=== PATIENT | female | born 1975 | race American Indian/Alaskan Native ===

== ENCOUNTER 2018-07-02 00:04 | Emergency (ER) | payer OTHER ==
[2018-07-02 00:50] VITALS: BP 129/67
--- NOTE | 2018-07-02 07:25 | Emergency Department Report ---
ED Laceration HPI - HPI Chief Complaint: Wound/Laceration Stated Complaint: RIGHT THUMB LACERATION Time Seen by Provider: 07/02/18 06:59 Occurred When: Yesterday Location: Upper Extremity (right 1st digit) Severity: mild Tetanus Status: Not up to Date Laceration Symptoms: Yes Pain, No Foreign Body Sensation, No Numbness, No Weakness Other History: This is a 43-year-old -[place] female who presents with a laceration to her right first digit. Patient states she accidentally cut her finger on a tape dispenser last night while at work. She reports incident occurred around 2224. Patient states she cleaned area with water and apply cool compresses. She does not recall her last tetanus vaccine. States she can't control bleeding. Patient denies numbness, tingling, swelling, paresthesias, or swelling. ED Review of Systems ROS: Stated complaint: RIGHT THUMB LACERATION Other details as noted in HPI Constitutional: denies: chills, fever Respiratory: denies: cough, shortness of breath, wheezing Cardiovascular: denies: chest pain, palpitations Gastrointestinal: denies: abdominal pain, nausea, diarrhea Skin: lesions (laceration to first digit). denies: rash Neurological: denies: headache, weakness, paresthesias Psychiatric: denies: anxiety, depression ED Past Medical Hx - Past Medical History Previous Medical History?: No - Surgical History Past Surgical History?: Yes Additional Surgical History: left kidney removed - Social History Smoking Status: Never Smoker Substance Use Type: None Laceration Physical Exam - Exam General: Vital signs noted. No distress. Alert and acting appropriately. Wound Length (cm): 1 (half centimeter) Laceration Location: Upper Extremity (anterior right first distal phalanx into the epidermis) Laceration Exam: Yes Normal Distal CMS, No Foreign Body, No Exposed Tendon, Vessel, or Nerve, No Tendon Injury ED Course Vital Signs 07/02/18 00:47 Temperature 98.1 F Pulse Rate 84 Respiratory 20 Rate Blood Pressure 129/67 O2 Sat by Pulse 100 Oximetry - Laceration /Wound Repair Right Anterior Distal Finger Wound Location: upper extremity (first distal phalanx) Wound Length (cm): 0 (half a centimeter) Wound's Depth, Shape: into muscle, linear Wound Explored: clean Irrigated w/ Saline (ccs): 10 Betadine Prep?: Yes Wound Repaired With: Dermabond Sterile Dressing Applied?: Yes ED Medical Decision Making - Medical Decision Making This is a 43 y.o. female presents with right first distal phalanx laceration since last night. Patient examined by me. Patient is non-toxic appearing and stable. There is a half a centimeter laceration to the anterior right distal first phalanx into the epidermis. Wound was irrigated with 10 mL of normal saline, Betadine wash, and closed with Dermabond. Given tetanus vaccine while in ER. Discussed ER care plan with patient. Discharged home stable. Patient agreed with plan. F/U with PCP. Critical care attestation.: If time is entered above; I have spent that time in minutes in the direct care o f this critically ill patient, excluding procedure time. ED Disposition Clinical Impression: Laceration of finger Qualifiers: Encounter type: initial encounter Finger: thumb Damage to nail status: without damage Foreign body presence: without foreign body Laterality: right Qualified Code(s): S61.011A - Laceration without foreign body of right thumb without damage to nail, initial encounter Disposition: DC- TO HOME OR SELFCARE Is pt being admited?: No Does the pt Need Aspirin: No Condition: Stable Instructions: Laceration (ED), Skin Adhesive Care (ED) Additional Instructions: Keep wound dry and clean for 48 hours. Avoid putting to much tension on wound site. Prop arm up on pillows to decrease swelling. Follow up with Primary Care Provider in 2-3 days. Return to ER if red, swollen, foul discharge, or fever. Referrals: NAOMI HOPE MD [Primary Care Provider] - 3-[address] [facility] [Outside] - 3-5 Days [facility] [Outside] - 3-5 Days Forms: Work/School Release Form(ED) Time of Disposition: 08:22
[2018-07-02] MEDS ORDERED: BOOSTRIX IM ONE (07:47)
== END 2018-07-02 08:47 | disposition home or self-care (01) ==
LOC: ED 00:04
DX: S61.011A Laceration without foreign body of right thumb without damage to nail, initial encounter (principal); W26.8XXA Contact with other sharp object(s), not elsewhere classified, initial encounter; Y93.89 Activity, other specified; Y92.89 Other specified places as the place of occurrence of the external cause; Y99.8 Other external cause status
CPT/HCPCS: 90471; 90715

== ENCOUNTER 2020-01-16 21:01 | Emergency (ER) | payer OTHER ==
--- NOTE | 2020-01-17 01:43 | Emergency Department Report ---
ED Shortness of Breath HPI - General Chief Complaint: Dyspnea/Respdistress Stated Complaint: DIFFICULTY IN BREATHING Time Seen by Provider: 01/17/20 01:33 Source: patient Mode of arrival: Wheelchair Limitations: No Limitations - History of Present Illness Initial Comments: 45-year-old female, history of bronchitis, presents to the ED with complaint of shortness of breath x1 week. Patient reports associated cough and chills. Patient denies headache, body aches, loss of smell or taste, vomiting, diarrhea. Patient had a negative COVID-19 test 12 days ago. MD Complaint: shortness of breath -: week(s) (1) Severity: moderate Consistency: intermittent Improves With: rest Worsens With: exertion Known History Of: other (Bronchitis) Associated Symptoms: cough Treatments Prior to Arrival: none - Related Data Previous Rx's Medication Instructions Recorded Last Taken Type Albuterol Sulfate [Proventil Hfa] 2 puff IH Q4HR PRN #1 hfa.aer.ad 01/17/20 Unknown Rx Benzonatate [Tessalon Perles] 100 mg PO Q8HR PRN #20 capsule 01/17/20 Unknown Rx predniSONE [Deltasone] 50 mg PO QDAY #5 tab 01/17/20 Unknown Rx Allergies Allergy/AdvReac Type Severity Reaction Status Date / Time No Known Allergies Allergy Unverified 01/16/20 21:12 ED Review of Systems ROS: Stated complaint: DIFFICULTY IN BREATHING Other details as noted in HPI Comment: All other systems reviewed and negative Constitutional: chills. denies: fever Respiratory: cough, shortness of breath Cardiovascular: denies: chest pain Gastrointestinal: denies: nausea, vomiting Musculoskeletal: other (Denies leg pain or swelling) ED Past Medical Hx - Surgical History Additional Surgical History: left kidney removed - Social History Smoking Status: Never Smoker Substance Use Type: None - Medications Home Medications: Home Medications Medication Instructions Recorded Confirmed Last Taken Type Albuterol Sulfate [Proventil Hfa] 2 puff IH Q4HR PRN #1 hfa.aer.ad 01/17/20 Unknown Rx Benzonatate [Tessalon Perles] 100 mg PO Q8HR PRN #20 capsule 01/17/20 Unknown Rx predniSONE [Deltasone] 50 mg PO QDAY #5 tab 01/17/20 Unknown Rx ED Physical Exam - General Limitations: No Limitations General appearance: alert, in no apparent distress - Head Head exam: Present: atraumatic, normocephalic - Eye Eye exam: Present: normal appearance, EOMI - ENT ENT exam: Present: mucous membranes moist - Neck Neck exam: Present: normal inspection - Respiratory Respiratory exam: Present: normal lung sounds bilaterally. Absent: respiratory distress - Cardiovascular Cardiovascular Exam: Present: regular rate, normal rhythm - GI/Abdominal GI/Abdominal exam: Present: soft. Absent: distended, tenderness - Extremities Exam Extremities exam: Present: normal inspection. Absent: pedal edema, calf tenderness - Neurological Exam Neurological exam: Present: alert, oriented X3 - Psychiatric Psychiatric exam: Present: normal affect, normal mood - Skin Skin exam: Present: warm, dry, intact, normal color ED Course Vital Signs 01/16/20 01/17/20 01/17/20 21:08 00:55 03:15 Temperature 98.6 F Pulse Rate 105 H 94 H Pulse Rate [ 94 H Bilateral] Respiratory 20 18 Rate Respiratory 22 Rate [Bilateral ] Blood Pressure 106/66 Blood Pressure 114/65 [left arm] O2 Sat by Pulse 97 95 Oximetry 01/17/20 04:27 Temperature Pulse Rate 94 H Pulse Rate [ Bilateral] Respiratory 18 Rate Respiratory Rate [Bilateral ] Blood Pressure Blood Pressure 106/62 [left arm] O2 Sat by Pulse 97 Oximetry ED Medical Decision Making - Lab Data Result diagrams: 01/17/20 02:00 01/17/20 02:00 - EKG Data -: EKG Interpreted by Vt EKG shows normal: sinus rhythm, axis, intervals, QRS complexes, ST-T waves Rate: normal - Radiology Data Radiology results: report reviewed, image reviewed - Medical Decision Making 45-year-old female presents to ED with likely acute bronchitis. Patient reports cough and shortness of breath over the last week. She recently tested negative for COVID-19. Patient actively coughing on exam. Otherwise, she is in no respiratory distress. O2 sats are normal. Chest x-ray shows no acute findings. EKG was normal, no ST changes, with normal troponin. D-dimer also negative. Patient was given prednisone and breathing treatment here in the ED. She does not require admission at this time. Patient will be discharged home with p rescriptions. Outpatient follow-up advised. - Differential Diagnosis Pneumonia, PE, bronchitis Critical care attestation.: If time is entered above; I have spent that time in minutes in the direct care of this critically ill patient, excluding procedure time. ED Disposition Clinical Impression: Acute bronchitis Disposition: DC- TO HOME OR SELFCARE Is pt being admited?: No Condition: Stable Instructions: Acute Bronchitis (ED) Prescriptions: predniSONE [Deltasone] 50 mg PO QDAY #5 tab Albuterol Sulfate [Proventil Hfa] 2 puff IH Q4HR PRN #1 hfa.aer.ad PRN Reason: Wheezing Benzonatate [Tessalon Perles] 100 mg PO Q8HR PRN #20 capsule PRN Reason: Cough Referrals: [facility] [Provider Group] - 3-5 Days [facility] [Outside] - 3-5 Days TERRIE MARCUS MD [Staff Physician] - 3-5 Days Time of Disposition: 03:35
[2020-01-17 02:13] LABS: Basophils % (Auto) 0.2 % (0.0-1.8); Hematocrit 37.6 % (30.3-42.9); Hemoglobin 12.1 gm/dl (10.1-14.3); Lymphocytes # (Auto) 0.9 K/mm3 (1.2-5.4); Lymphocytes % (Auto) 15.3 % (13.4-35.0); Mean Corpuscular HGB Conc 32 % (30-34); Mean Corpuscular Volume 75 fl (79-97); Monocytes # (Auto) 0.4 K/mm3 (0.0-0.8); Monocytes % (Auto) 6.9 % (0.0-7.3); Platelet Count 211 K/mm3 (140-440); Red Blood Count 5.02 M/mm3 (3.65-5.03); Red Cell Distribution Width 17.4 % (13.2-15.2)
[2020-01-17] MEDS ORDERED: IPRATROPIUM/ALBUTEROL SULFATE 3 ML AMPUL.NEB IH ONE (02:18)
[2020-01-17 02:36] LABS: BUN/Creatinine Ratio 9; Blood Urea Nitrogen 12 mg/dL (7-17); Calcium 7.5 mg/dL (8.4-10.2); Hemolysis Index 6
[2020-01-17] MEDS ORDERED: predniSONE 20 MG TAB PO ONE (02:36)
--- NOTE | 2020-01-17 03:07 | XRay Report ---
CHEST 1 VIEW INDICATION: sob. COMPARISON: None. FINDINGS: Support devices: None. Heart: Within normal limits. Lungs/Pleura: Diminished lung volumes. No significant infiltrate. Additional findings: None. IMPRESSION: Diminished lung volumes. Signer Name: Diomedes Harris MD Signed: 01/17/2020 3:03 AM Workstation Name: [id number]
[2020-01-17 04:28] VITALS: BP 106/62
== END 2020-01-17 03:46 | disposition home or self-care (01) ==
LOC: ED 21:01
DX: J20.9 Acute bronchitis, unspecified (principal); Z98.890 Other specified postprocedural states; Z79.899 Other long term (current) drug therapy
CPT/HCPCS: 36415; 71045; 80048; 83880; 84484; 84703; 85025; 85379; 93005; 94640; 99284; J7512; 94644